=== PATIENT | female | born 1970 | race Caucasian/White ===

== ENCOUNTER 2016-07-26 16:04 | Emergency (ER) | payer SELFPAY ==
[2016-07-26 16:17] VITALS: BP 153/91; PULSE 100; TEMP 98.5; BMI 26.9
--- NOTE | 2016-07-26 16:35 | EDPRACDOC ---
- General Information Stated Complaint: LOWER BACK PAIN NAUSEATED URINARY SYMPTOMS Time Seen by Provider: 07/26/16 16:26 Information Source: Patient Mode Of Arrival: Car Home Medications: Home Medications Ciprofloxacin HCl [Cipro] 500 mg PO BID #14 tab 07/26/16 Cyclobenzaprine HCl [Flexeril] 10 mg PO TID PRN #15 tablet 07/26/16 Ondansetron HCl [Zofran] 4 mg PO Q8H PRN #15 tab 07/26/16 Allergies/Adverse Reactions: Allergies Allergy/AdvReac Type Severity Reaction Status Date / Time citalopram hydrobromide Allergy Severe Hives* Verified 07/26/16 16:28 [From Celexa] ibuprofen Allergy See Verified 07/26/16 16:28 Comments - History of Present Illness Onset: yesterday HPI: Pt states she was turning over in bed last night and felt a "pop". C/o lower back pain, frequency, nausea. Denies abd pain, loss of control bowel or bladder , leg weakness or numbness, rash, vaginal bleeding or discharge. Pain Location: Reports: Lower, Lumbar Pain Radiates To: Reports: None Pain Caused By: Reports: Spontaneous, Twisting Circumstances: Reports: Other (turning over in bed) Relevant History: Reports: Chronic back pain Pain Severity: Reports: Moderate Pain Quality: Reports: Aching Worsened By: Reports: Movement Associated Signs and Symptoms: Reports: Nausea ED Past Medical History - History Reviewed Yes Nurses notes reviewed and agree except as marked - Patient Medical History Psychological History: Reports: Depression, Anxiety, Substance Use Disorder ( Cocaine and ETOH abuse) Additional Past Medical History: DDD LUMBAR SPINE - Social Medical History Smoking Status: Heavy tobacco smoker (5 or more cigarettes/day or daily pipe/ cigar) Social History: Reports: Substance Use Disorder (Cocaine and ETOH abuse) ETOH: None EDM Review of Systems - Review of Systems Constitutional: No Symptoms Reported. negative: Fever, Chills, Weakness, Fatigue, Loss of Appetite Respiratory: No Symptoms Reported. negative: Cough, Brassy Cough, Barky Cough, Shortness of Breath, Wheezing, Hemoptysis Cardiovascular: No Symptoms Reported. negative: Chest Pain, Palpitations, Syncope, Edema, Orthopnea, PND, Skin Mottling, Cyanosis Gastrointestinal: Nausea Genitourinary: Frequency. negative: No Symptoms Reported, Bleeding, Dysuria, Discharge, Hematuria, , Testicular Pain Neurological: No Symptoms Reported. negative: Headache, Dizziness, Seizure, Numbness, Weakness, Speech Difficulty, Gait Difficulty Musculoskeletal: Back Integumentary: No Symptoms Reported. negative: Itching, Rash, Bruising, Wound Allergic/Immunologic: No Symptoms Reported. negative: Hives, Itching Hematologic: No Symptoms Reported. negative: Lymphadenopathy, Easy Bruising, Easy Bleeding Psychiatric: No Symptoms Reported. negative: Anxiety, Depression, Hallucinations, Insomnia, Suicidal - Physical Exam Constitutional: Alert Oriented to: Time, Person, Place Last recorded Vital Signs: Last Vital Signs Temp 98.5 F 07/26/16 16:17 Pulse 100 07/26/16 16:17 Resp 18 07/26/16 16:17 BP 153/91 07/26/16 16:17 Pulse Ox 98 07/26/16 16:17 Oxygen Pulse Oxygen Saturation 98 O2 Device Room Air Oxygen Flow Rate Fraction of Inspired Oxygen ( FIO2) - HEENT Head: Normal ( normocephalic) Eye Exam: Normal (PERRL, EOMI, Sclera white) Neck: Normal (FROM, trachea at midline) - Respiratory/Cardiovascular Respiratory: Normal - CTA (BBS clear to auscultation without adventitious sounds ) Cardiovascular: Normal (RRR without murmur, gallop or rub) - GI Auscultation: Normal (NABS) Palpation: Normal (Soft,No rebound or guarding, non distended) Tenderness: Non tender - Musculoskeletal Back: Lumbar TTP (paraspinous tenderness) Extremities: Normal (Normal tone, Pulses 2+ No cyanosis or edema, FROM) - Integumentary Skin: Normal, Warm, Dry Lymphatics: Normal (no adenopathy) - Neurologic Memory Impaired: Normal Motor Function: Normal (Normal tone, Pulses 2+ No cyanosis or edema, FROM) Mood Description: Normal Perception: Normal ED Back Exam - Neurologic Motor Deficit: None (strength 5/5, sensation nl) Reflexes: Normal (CN II-X11 intact) - Musculoskeletal Cervical: Normal Thoracic: Normal Lumbar: Tender Midline: Normal Paraspinous: Tender Straight Leg Raise: Negative Pelvis: Normal - Differential Diagnosis DJD, Musculoskeletal pain, Strain, Urinary tract infection - Results 07/26/16 16:42 Laboratory Results - last 24 hr 07/26/16 16:14 Urine Color Pale yellow Urine Clarity Sl cldy Urine pH 6.0 Ur Specific [place] 1.015 Urine Protein Neg Urine Glucose (UA) Neg Urine Ketones Neg Urine Occult Blood 3+ H Urine Nitrite Neg Urine Bilirubin Neg Urine Urobilinogen <2.0 Ur Leukocyte Esterase 2+ H Urine RBC 2-5 Urine WBC 5-10 H Ur Epithelial Cells 3+ Urine Bacteria Few Urine Mucus Sm amt Decision Time to Discharge: 16:42 - Departure Disposition: Home Condition: Good Final Diagnosis: Lumbar sprain, Acute urinary tract infection Instructions: Thoracic (Lumbar) Strain, Urinary Tract Infection in Women (ED) Education/Counseling Given To: Patient Education/Counseling Given Regarding: Diagnosis, Treatment, Follow Up Referrals: None,No Provider [Primary Care Provider] - One Week Donte Chen MD [Staff Physician] - One Week Prescriptions: New Ciprofloxacin HCl [Cipro] 500 mg PO BID #14 tab Cyclobenzaprine HCl [Flexeril] 10 mg PO TID PRN #15 tablet PRN Reason: Pain Ondansetron HCl [Zofran] 4 mg PO Q8H PRN #15 tab PRN Reason: Nausea/Vomiting Additional Instructions: Return for worse or different symptoms.
[2016-07-26 16:39] LABS: LEUKOCYTES/URINE 2+ (NEGATIVE); NITRITE/URINE NEG (NEGATIVE); URINE OCCULT BLOOD 3+ (NEG/TRACE)
== END 2016-07-26 17:09 | disposition home or self-care (01) ==
LOC: ED 16:04
DX: S33.5XXA Sprain of ligaments of lumbar spine, initial encounter (principal); N39.0 Urinary tract infection, site not specified; X58.XXXA Exposure to other specified factors, initial encounter; Y93.89 Activity, other specified
CPT/HCPCS: 81001; 99282